=== PATIENT | male | born 1995 | race Caucasian/White ===

== ENCOUNTER 2017-02-18 16:26 | Emergency (ER) | payer BC ==
[2017-02-18 16:34] VITALS: BP 113/60; PULSE 85; TEMP 98.2; BMI 22.9
--- NOTE | 2017-02-18 17:21 | PDOC ---
History of Present Illness - General Chief Complaint: Bite Stated Complaint: DOG BITE Time Seen by Provider: 02/18/17 16:42 History Source: Patient Exam Limitations: No Limitations - History of Present Illness Initial Comments: 02/18/17 17:16 Patient reports dog bite to abdomen and left upper thigh. was at soccer field, playing soccer with friends when a van pulled up and allowed his pet dog/ pitbull to run unleashed. dog was initially friendly and was playing with a ball but then became aggressive and started nipping at patient's ankles. Patient ran back towards the van where dog was retrieved by ulnar. However, within a few minutes industrial economist allow dog to be released again without leash who then came after same patient and attacked, jumping and biting to his right abdomen and left thigh before patient was able to get back to Van. Dog was then placed into the van and van/industrial economist drove off. No one was able to retrieve information about industrial economist or the dog. Patient complaints of wound to right lower abdomen, and left upper thigh. No profuse bleeding, no significant pain. 02/18/17 17:19 Occurred: reports: just prior to arrival, this afternoon Severity: reports: mild Pain Location: reports: abdomen, lower extremity (left) Method of Injury: Yes: assault (dog bite) Associated Symptoms (Fall): denies symptoms Past History - Travel Traveled outside of the country in the last 30 days: No Close contact w/someone who was outside of country & ill: No - Past Medical History Allergies/Adverse Reactions: Allergies Allergy/AdvReac Type Severity Reaction Status Date / Time No Known Allergies Allergy Verified 02/18/17 16:31 Home Medications: Ambulatory Orders No Home Medications 0 dose .ROUTE UTDICT 03/22/14 Suicide Attempt (Hx): No Other medical history: DENIES. - Surgical History Abdominal Surgery: Yes (ABD HERNIA.) - Psycho/Social/Smoking Cessation Hx Anxiety: No Suicidal Ideation: No Smoking Status: No Smoking History: Never smoked Have you smoked in the past 12 months: No Number of Cigarettes Smoked Daily: 0 Hx Alcohol Use: Yes Drug/Substance Use Hx: No Substance Use Type: Alcohol Review of Systems - Review of Systems Able to Perform ROS?: Yes Is the patient limited Kyrgyz proficient: Yes Constitutional: Yes: Symptoms Reported, See HPI, Malaise HEENTM: Yes: See HPI. No: Symptoms Reported ABD/GI: Yes: See HPI. No: Symptoms Reported Musculoskeletal: Yes: See HPI. No: Symptoms Reported, Joint Pain, Muscle Pain Integumentary: Yes: Symptoms Reported, See HPI, Bruising, Other (superficial abrasions to right lower abdomen and left upper thigh) Neurological: Yes: See HPI. No: Symptoms reported, Headache All Other Systems: Reviewed and Negative *Physical Exam - Vital Signs Last Vital Signs Temp Pulse Resp BP Pulse Ox 98.2 F 85 18 113/60 99 02/18/17 16:30 02/18/17 16:30 02/18/17 16:30 02/18/17 16:30 02/18/17 16:30 - Physical Exam General Appearance: Yes: Nourished, Appropriately Dressed, Apparent Distress HEENT: positive: VANESSA, Normal ENT Inspection, TMs Normal, Pharynx Normal Neck: positive: Supple. negative: Tender Respiratory/Chest: positive: Lungs Clear, Normal Breath Sounds Musculoskeletal: positive: Normal Inspection. negative: CVA Tenderness Extremity: positive: Normal Capillary Refill, Normal Inspection, Normal Range of Motion, Tender (facial abrasion, scratch winkler to left upper inner thigh area and no active bleeding or bruising. Another superficial abrasion with mild bruising to right lower quadrant of abdomen with 3 distinct lines of abrasion. 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 Medical Decision Making - Medical Decision Making 02/18/17 18:45 Completed rabies initial visit including 10 mL of immunoglobulin, and first vaccine. Patient tolerated well without any reaction with 30 minutes observation. Understands will follow up for additional 3 vaccinations to complete rabies course. *DC/Admit/Observation/Transfer Diagnosis at time of Disposition: Rabies exposure Dog bite Qualifiers: Encounter type: initial encounter Qualified Code(s): W54.0XXA - Bitten by dog, initial encounter - Discharge Dispostion Disposition: HOME Condition at time of disposition: Stable Admit: No - Referrals Referrals: Baer,Shun., MD [Primary Care Provider] - - Patient Instructions Additional Instructions: Immunoglobulin and vaccinations initiated. Return to ER or PCP for continuation of rabies vaccinations. Day 0 of rBIES Series today, will need additional vaccines on , February 25, and March 04 to complete course.
[2017-02-18] MEDS ORDERED: RABIES VACCINE (PCEC)/PF 2.5 UNIT/VIAL IM ONE (17:39)
[2017-02-18] MEDS ORDERED: RABIES IMMUNE GLOBULIN 300 UNITS/2 ML VIAL IM ONE (17:39)
[2017-02-18] MEDS ORDERED: RABIES IMMUNE GLOBULIN 300 UNITS/2 ML VIAL ONE (17:49)
== END 2017-02-18 19:13 | disposition home or self-care (01) ==
LOC: SUPCPDRO 16:26 → JERFT 16:26
PROC: 3E0234Z Introduction of Serum, Toxoid and Vaccine into Muscle, Percutaneous Approach (ICD-10-PCS; principal; 2017-02-18)
DX: Z20.3 Contact with and (suspected) exposure to rabies (principal); W54.0XXA Bitten by dog, initial encounter; Y93.89 Activity, other specified; Y92.830 Public park as the place of occurrence of the external cause
CPT/HCPCS: 90375; 90675; 99281-25

== ENCOUNTER → 2017-02-22 | Emergency (ER) | payer BC ==
[~2017-02-22] MED LIST: RABIES VACCINE (PCEC)/PF 2.5 UNIT/VIAL IM ONE
[2017-02-22 01:32] VITALS: BP 123/76; PULSE 73; TEMP 97.5; BMI 22.3
--- NOTE | 2017-02-22 01:59 | PDOC ---
History of Present Illness - General Chief Complaint: Revisit,Rabies Injection Stated Complaint: RABIES TX Time Seen by Provider: 02/22/17 01:18 History Source: Patient Exam Limitations: No Limitations - History of Present Illness Initial Comments: 02/22/17 01:54 21yo Male patient presents to ED for second dose of Rabies vaccination 2016. Patient states he was bitten by a stray Pit Bull, and was informed by a friends mother who is a nurse to come in for evaluation on 02-18-2017. Patient is currently follow vaccination schedule. He denies reaction, fever, CP, Diff breathing or any other complaints at this time. Past History - Travel Traveled outside of the country in the last 30 days: No Close contact w/someone who was outside of country & ill: No - Past Medical History Allergies/Adverse Reactions: Allergies Allergy/AdvReac Type Severity Reaction Status Date / Time No Known Allergies Allergy Verified 02/22/17 01:30 Home Medications: Ambulatory Orders No Home Medications 0 dose .ROUTE UTDICT 03/22/14 Suicide Attempt (Hx): No - Surgical History Abdominal Surgery: Yes (ABD HERNIA.) - Psycho/Social/Smoking Cessation Hx Anxiety: No Suicidal Ideation: No Smoking Status: No Smoking History: Never smoked Have you smoked in the past 12 months: No Number of Cigarettes Smoked Daily: 0 Information on smoking cessation initiated: No Hx Alcohol Use: No Drug/Substance Use Hx: No Substance Use Type: Alcohol Review of Systems - Review of Systems Able to Perform ROS?: Yes Is the patient limited Kinyarwanda proficient: No Constitutional: No: Chills, Fever Respiratory: No: Cough, Shortness of Breath, Stridor, Wheezing Cardiac (ROS): No: Chest Pain ABD/GI: No: Nausea, Poor Appetite, Poor Fluid Intake, Vomiting, Abdominal cramping : No: Burning, Dysuria Musculoskeletal: No: Back Pain Integumentary: No: Bruising, Erythema, Rash, Sweating Neurological: No: Headache, Seizure, Tremors, Weakness, Unsteady Gait, Ataxia All Other Systems: Reviewed and Negative *Physical Exam - Vital Signs Last Vital Signs Temp Pulse Resp BP Pulse Ox 97.5 F L 73 14 123/76 98 02/22/17 01:30 02/22/17 01:30 02/22/17 01:30 02/22/17 01:30 02/22/17 01:30 - Physical Exam General Appearance: Yes: Nourished, Appropriately Dressed. No: Apparent Distress, Mild Distress, Moderate Distress, Severe Distress HEENT: positive: EOMI, VANESSA, Normal ENT Inspection, Normal Voice, Symmetrical, TMs Normal, Pharynx Normal. negative: Pharyngeal Erythema, Tonsillar Exudate, Tonsillar Erythema, Nasal Congestion, Rhinorrhea, TM Bulging, TM Dull, TM Erythema Neck: positive: Trachea midline, Normal Thyroid, Supple. negative: Rigid, Decreased range of motion, Stridor, Lymphadenopathy (R), Lymphadenopathy (L) Respiratory/Chest: positive: Lungs Clear, Normal Breath Sounds. negative: Chest Tender, Respiratory Distress, Accessory Muscle Use, Labored Respiration, Rapid RR Cardiovascular: positive: Regular Rhythm, Regular Rate. negative: Tachycardia Gastrointestinal/Abdominal: positive: Normal Bowel Sounds, Soft. negative: Distended, Guarding, Rebound, Tenderness Musculoskeletal: positive: Normal Inspection. negative: CVA Tenderness, Decreased Range of Motion, Vertebral Tenderness Extremity: positive: Normal Capillary Refill, Normal Inspection, Normal Range of Motion. 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 Print Language: NEPALI
== END | disposition home or self-care (01) ==
LOC: JER 00:27
PROC: 3E0234Z Introduction of Serum, Toxoid and Vaccine into Muscle, Percutaneous Approach (ICD-10-PCS; principal; 2017-02-22)
DX: Z23 Encounter for immunization (principal)
CPT/HCPCS: 90675; 99281-25

== ENCOUNTER 2017-06-02 11:12 | Emergency (ER) | payer BC ==
[2017-06-02 11:22] VITALS: BP 129/67; PULSE 81; TEMP 98.1; BMI 23.0
[2017-06-02] MEDS ORDERED: RABIES VACCINE (PCEC)/PF 2.5 UNIT/VIAL IM ONE (11:56)
--- NOTE | 2017-06-02 11:56 | PDOC ---
History of Present Illness - General Chief Complaint: Revisit,Rabies Injection Stated Complaint: FOLLOW-UP VACCINE Time Seen by Provider: 06/02/17 11:34 History Source: Patient Exam Limitations: No Limitations - History of Present Illness Initial Comments: 06/02/17 12:10 21-year-old male here for his third injection of rabies vaccine. Patient states had been bitten by a dog hoots of his stay has not been identified and so was treated with 2 injections here in February but did not have the money or the insurance to cover the third injection so did not follow-up and did receive a call today from the [facility] stating he needs to continue with the schedule since the dog has still not been located. Patient has no clubbing's of myalgia, arthralgia, fever, redness to the joint or dog bite to the right lower quadrant. Past History - Travel Traveled outside of the country in the last 30 days: No Close contact w/someone who was outside of country & ill: No - Past Medical History Allergies/Adverse Reactions: Allergies Allergy/AdvReac Type Severity Reaction Status Date / Time No Known Allergies Allergy Verified 06/02/17 11:21 Home Medications: Ambulatory Orders No Home Medications 0 dose .ROUTE UTDICT 03/22/14 Other medical history: denies - Surgical History Abdominal Surgery: Yes (ABD HERNIA.) - Suicide/Smoking/Psychosocial Hx Smoking Status: No Smoking History: Never smoked Have you smoked in the past 12 months: No Number of Cigarettes Smoked Daily: 0 Information on smoking cessation initiated: No Hx Alcohol Use: No Drug/Substance Use Hx: No Substance Use Type: None Patient Lives Alone: No Lives with/in: parents Review of Systems - Review of Systems Able to Perform ROS?: Yes Constitutional: No: Symptoms Reported HEENTM: No: Symptoms Reported Respiratory: No: Symptoms reported Cardiac (ROS): No: Symptoms Reported ABD/GI: No: Symptoms Reported : No: Symptoms Reported Musculoskeletal: No: Symptoms Reported Integumentary: No: Symptoms Reported Neurological: No: Symptoms reported Endocrine: No: Symptoms Reported Hematologic/Lymphatic: No: Symptoms Reported *Physical Exam - Vital Signs Last Vital Signs Temp Pulse Resp BP Pulse Ox 98.1 F 81 18 129/67 98 06/02/17 11:19 06/02/17 11:19 06/02/17 11:19 06/02/17 11:19 06/02/17 11:19 - Physical Exam General Appearance: Yes: Nourished, Appropriately Dressed. No: Apparent Distress Cardiovascular: positive: Regular Rhythm, Regular Rate. negative: Murmur Musculoskeletal: negative: Vertebral Tenderness Extremity: positive: Normal Inspection Integumentary: positive: Normal Color, Warm, Moist Neurologic: positive: Motor Strength 5/5 (ambulatory) Medical Decision Making - Medical Decision Making 06/02/17 12:13 #4.Patient with the rabies vaccine since he missed his third vaccine back in February secondary to insurance and no form of payment. Patient has had no complaints or symptoms of complications related to rabies. Patient ordered for third and isabella return in 7 days for 4th vaccine. *DC/Admit/Observation/Transfer Diagnosis at time of Disposition: Rabies exposure, Encounter for vaccination - Discharge Dispostion Disposition: HOME Condition at time of disposition: Good - Referrals Referrals: Ranjan Baer MD [Primary Care Provider] - - Patient Instructions Printed Discharge Instructions: DI for Rabies Vaccine Additional Instructions: Please return here in 7 days which is June 09 for last injection of rabies vaccine. - Post Discharge Activity Forms/Work/School Notes: Rabies Vaccination F/U Edie.
== END 2017-06-02 12:10 | disposition home or self-care (01) ==
LOC: JERFT 11:12
PROC: 3E0234Z Introduction of Serum, Toxoid and Vaccine into Muscle, Percutaneous Approach (ICD-10-PCS; principal; 2017-06-02)
DX: Z20.3 Contact with and (suspected) exposure to rabies (principal)
CPT/HCPCS: 90675; 99281-25

== ENCOUNTER 2017-06-09 14:47 | Emergency (ER) | payer BC ==
[2017-06-09 15:22] VITALS: BP 129/73; PULSE 60; TEMP 98.2; BMI 23.0
[2017-06-09] MEDS ORDERED: RABIES VACCINE (PCEC)/PF 2.5 UNIT/VIAL IM ONE (16:14)
--- NOTE | 2017-06-09 16:25 | PDOC ---
History of Present Illness - General Chief Complaint: Revisit,Rabies Injection Stated Complaint: FOLLOW-UP Time Seen by Provider: 06/09/17 16:11 - History of Present Illness Initial Comments: 06/09/17 16:14 CHIEF COMPLAINT: rabies vaccine series HISTORY OF PRESENT ILLNESS: 21-year-old male here for his fourth injection of rabies vaccine. Patient states had been bitten at his RLQ by a pitbull that was not identified and so was treated with 2 injections here in February, but did not have the money or the insurance to cover the third injection so did not follow- up. He received a call last week from the health department stating that he needed to continue with the schedule since the dog has still not been located. Patient has no clubbing's of myalgia, arthralgia, fever, chills, nausea, vomiting, diarrhea, or any redness, swelling, or erythema to the joint or dog bite to the RLQ. PAST MEDICAL HISTORY: Denies past medical history FAMILY HISTORY: Denies SOCIAL HISTORY:Denies tobacco, alcohol, illicit drug use. SURGICAL HISTORY: Denies ALLERGIES: No known drug allergies REVIEW OF SYSTEMS General/Constitutional: Denies fever or chills. Denies weakness, weight change. HEENT: Denies change in vision. Denies ear pain or discharge. Denies sore throat. Cardiovascular: Denies chest pain or shortness of breath. Respiratory: Denies cough, wheezing, or hemoptysis. Gastrointestinal: Denies nausea, vomiting, diarrhea. Musculoskeletal: Denies joint or muscle swelling or pain. Denies neck or back pain. Skin: "I got bit by a dog in February, last rabies shot was last week." PHYSICAL EXAM General Appearance: Well-appearing, appropriately dressed. No apparent distress. HEENT: EOMI, PERRLA Neck: Supple. Trachea midline. No tenderness, rigidity, carotid bruit, stridor , lymphadenopathy, or thyromegaly. Respiratory/Chest: Lungs CTAB. Cardiovascular: RRR. S1, S2. Musculoskeletal/Extremities: Healing bite winkler with mild discoloration to RLQ. No erythema, swelling, tenderness, warmth to site of bite. Normal inspection. FROM of all extremities, normal capillary refill. Pelvis Stable. No CVA tenderness. No tenderness to extremities, pedal edema, swelling, erythema or deformity. Integumentary: Appropriate color, dry, warm. No cyanosis, erythema, jaundice or rash Neurologic: race board attendant II-XII intact. Fully oriented, alert. Appropriate mood/affect. Motor strength 5/5. No appreciable EOM palsy, facial droop or sensory deficit. Past History - Past Medical History Allergies/Adverse Reactions: Allergies Allergy/AdvReac Type Severity Reaction Status Date / Time No Known Allergies Allergy Verified 06/09/17 15:20 Home Medications: Ambulatory Orders No Home Medications 0 dose .ROUTE UTDICT 03/22/14 - Surgical History Abdominal Surgery: Yes (ABD HERNIA.) - Suicide/Smoking/Psychosocial Hx Smoking Status: No Smoking History: Never smoked Have you smoked in the past 12 months: No Number of Cigarettes Smoked Daily: 0 Hx Alcohol Use: No Drug/Substance Use Hx: No Substance Use Type: None *Physical Exam - Vital Signs Last Vital Signs Temp Pulse Resp BP Pulse Ox 98.2 F 60 18 129/73 100 06/09/17 15:00 06/09/17 15:00 06/09/17 15:00 06/09/17 15:00 06/09/17 15:00 *DC/Admit/Observation/Transfer Diagnosis at time of Disposition: Rabies, need for prophylactic vaccination against - Discharge Dispostion Disposition: HOME Condition at time of disposition: Stable Admit: No - Referrals Referrals: Ranjan Baer MD [Primary Care Provider] - - Patient Instructions Additional Instructions: Please contact the health department so they are aware that you have received your rabies vaccines. If you develop any fever, chills, nausea, vomiting, diarrhea, joint pain, or any new or worsening symptoms, please return to the ER.
== END 2017-06-09 16:49 | disposition home or self-care (01) ==
LOC: JERFT 14:47
DX: Z20.3 Contact with and (suspected) exposure to rabies (principal); Z23 Encounter for immunization
CPT/HCPCS: 90675; 99281-25